=== PATIENT | female | born 1995 | race Caucasian/White ===

== ENCOUNTER 2019-03-19 19:31 | Emergency (ER) | payer BC ==
[2019-03-19 19:44] VITALS: BMI 27.4
[2019-03-19 20:44] LABS: BASO % 0.3 % (0.0-2.0); EOS % 0.6 % (0.0-4.0); HEMOGLOBIN 12.7 g/dL (12.0-16.0); LYMPH % 34.6 % (20.0-40.0); MEAN CELL VOLUME 93.5 fl (81.0-99.0); MEAN CORPUSCULAR HEMOGLOBIN 31.3 pg (27.0-31.0); MEAN CORPUSCULAR HGB CONC 33.5 g/dL (33.0-37.0); MEAN PLATELET VOLUME 8.3 fl (7.2-11.7); MONO # 0.3 K/uL (0.0-0.8); MONO % 5.3 % (0.0-10.0); NEUT # 3.4 K/uL (1.8-7.0); NEUT % 59.2 % (50.0-75.0); NRBC % 0.2 % (0.0-0.0); RBC 4.04 Mil/uL (3.80-5.20); RED CELL DISTRIBUTION WIDTH 12.9 % (11.5-14.5); WHITE BLOOD COUNT 5.7 K/uL (4.8-10.8)
[2019-03-19 20:58] LABS: BLOOD UREA NITROGEN 18 mg/dl (7-17); CALCIUM 9.4 mg/dL (8.4-10.2); GFR NON-AFRICAN AMERICAN > 60
--- NOTE | 2019-03-19 21:10 | ED PDOC ---
HPI: Chest Pain Time Seen by Provider: 03/19/19 19:55 Chief Complaint (Nursing): Chest Pain Chief Complaint (Provider): Chest Pain History Per: Patient History/Exam Limitations: no limitations Onset/Duration Of Symptoms: Days Current Symptoms Are (Timing): Still Present Modifying Factors: None Exacerbating Factors: None Additional History Per: Patient Additional Complaint(s): 23 y/o female with no significant PMHx presents to the ED for evaluation of persistent left sided chest pain, onset one week ago. Patient notes pain is non- radiating, non-exertional and worsens with movement and deep inspirations. Otherwise, patient denies fever, cough, shortness of breath, leg swelling, recent travel and control. 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 PMD: Dr. Merritt - Risk Factors PE Risk Factors: Neg: Extremity Immobilization/Fx, Active Cancer, Estrogen Usage Past Medical History Reviewed: Historical Data, Nursing Documentation, Vital Signs Vital Signs: Last Vital Signs Temp 98.7 F 03/19/19 19:44 Pulse 58 L 03/19/19 19:44 Resp 16 03/19/19 19:44 BP 105/62 03/19/19 19:44 Pulse Ox 99 03/19/19 19:44 - Medical History PMH: No Chronic Diseases - Surgical History Other surgeries: left knee surgery - Family History Family History: States: CAD - Social History Current smoker - smoking cessation education provided: No Alcohol: None Drugs: Denies - Home Medications Home Medications: Ambulatory Orders Medication Instructions Recorded Ibuprofen [Motrin] 600 mg PO TID #20 tab 03/20/19 - Allergies Allergies/Adverse Reactions: Allergies Allergy/AdvReac Type Severity Reaction Status Date / Time No Known Allergies Allergy Verified 03/19/19 19:44 JAY Risk Score for UA/NSTEMI - JAY Risk Score Age > 64: NO 3 or more CAD Risk Factors: NO Known CAD (Stenosis greater than 50%): NO Aspirin use in past 7 days: NO Severe Angina: NO EKG ST changes greater than 0.5mm: NO Positive Cardiac Marker: NO JAY Score: 0 Risk %: 5% Review of Systems ROS Statement: Except As Marked, All Systems Reviewed And Found Negative Constitutional: Negative for: Fever Cardiovascular: Positive for: Chest Pain Respiratory: Negative for: Cough, Shortness of Breath Musculoskeletal: Negative for: Leg Pain Physical Exam - Reviewed Nursing Documentation Reviewed: Yes Vital Signs Reviewed: Yes - Physical Exam Appears: Positive for: No Acute Distress Head Exam: Positive for: ATRAUMATIC, NORMOCEPHALIC Skin: Positive for: Normal Color, Warm, Dry Eye Exam: Positive for: Normal appearance, EOMI, PERRL Neck: Positive for: Normal, Painless ROM, Supple Cardiovascular/Chest: Positive for: Regular Rate, Rhythm. Negative for: Chest Non Tender (point tenderness to the left upper chest wall), Murmur Respiratory: Positive for: Normal Breath Sounds. Negative for: Respiratory Distress Gastrointestinal/Abdominal: Positive for: Normal Exam, Soft. Negative for: Tenderness Back: Positive for: Normal Inspection Extremity: Positive for: Normal ROM. Negative for: Deformity Neurological/Psych: Positive for: Awake, Alert, Oriented (x3) - Laboratory Results Result Diagrams: 03/19/19 20:36 03/19/19 20:36 Lab Results: D-Dimer, Quantitative 239 ng/mlDDU (0-230) H 03/19/19 20:36 - ECG O2 Sat by Pulse Oximetry: 99 (RA) Pulse Ox Interpretation: Normal - Progress Re-evaluation Time: 00:43 Condition: Re-examined, Improved Medical Decision Making Medical Decision Making: Time: 2015 Impression: Chest Pain Differentials include but not limited to ACS, Pulmonary Embolism and Musculoskeletal Pain Plan: -- EKG -- BMP -- Troponin I -- CBC with Differentials -- D Dimer -- CXR Two Views -- Toradol 30 mg IVP -- Plate [place] Time: 28 --CTA chest FINDINGS: Normal enhancement of the main pulmonary artery and right and left pulmonary arteries. Normal enhancement of the bilateral peripheral pulmonary arteries. There is no demonstrated pulmonary embolism. Normal thoracic aorta and visualized great vessels. There is no demonstrated aortic dissection. Normal heart and pericardium. Normal mediastinum. Normal hilar regions. Normal visualized trachea and bronchi. The lungs are well expanded. Normal pulmonary parenchyma. Normal pleura. Normal chest wall structures. Normal osseous structures. Normal visualized upper abdomen. IMPRESSION: Normal CTA chest examination, without a demonstrated pulmonary embolism or arterial dissection. Scribe Attestation: Documented by Gokul Yang, acting as a scribe Roney Degroot MD. Provider Scribe Attestation: All medical record entries made by the Scribe were at my direction and personally dictated by me. I have reviewed the chart and agree that the record accurately reflects my personal performance of the history, physical exam, medical decision making, and the department course for this patient. I have also personally directed, reviewed, and agree with the discharge instructions and disposition. Disposition - Clinical Impression Clinical Impression: Chest pain - Patient ED Disposition Is Patient to be Admitted: No Doctor Will See Patient In The: Office Counseled Patient/Family Regarding: Studies Performed, Diagnosis, Need For Followup - Disposition Disposition: Routine/Home Disposition Time: 00:43 Condition: GOOD Additional Instructions: BRANDON VILLA, thank you for letting us take care of you today. Your provider was Calvin Degroot MD and you were treated for CHEST PAIN. The emergency medical care you received today was directed at your acute symptoms. If you were prescribed any medication, please fill it and take as directed. It may take several days for your symptoms to resolve. Return to the Emergency Department if your symptoms worsen, do not improve, or if you have any other problems. Please contact your doctor or call one of the physicians/clinics you have been referred to that are listed on the Patient Visit Information form that is included in your discharge packet. Bring any paperwork you were given at discharge with you along with any medications you are taking to your follow up visit. Our treatment cannot replace ongoing medical care by a primary care provider outside of the emergency department. Thank you for allowing the [email or web address] team to be part of your care today. If you had an X-Ray or CT scan: A Radiologist will review the ED reading if any change in treatment is needed we will contact you. If you had a blood, urine, or wound culture: It will take several days for the results, if any change in treatment is needed we will contact you. Prescriptions: Ibuprofen [Motrin] 600 mg PO TID #20 tab Instructions: Chest Pain Forms: [facility] ([place])
[2019-03-19] MEDS ORDERED: Sodium Chloride 0.9% 50 ML IV ONE (23:22)
[2019-03-19] MEDS ORDERED: Iodixanol 320 MG/ML 100 ML BOTTLE IV ONE (23:22)
[2019-03-20 02:26] VITALS: BP 113/71; PULSE 57; RESP 16; TEMP 98.6; O2SAT 100
--- NOTE | 2019-03-20 09:28 | CARD ---
APPROVED REPORT Date of service: 03/19/2019 EKG Measurement Heart [id number] <Conclusion> Sinus bradycardia Otherwise normal ECG
--- NOTE | 2019-03-20 10:37 | RAD ---
Date of service: 03/19/2019 HISTORY: chest pain COMPARISON: No prior. TECHNIQUE: Chest PA and lateral views FINDINGS: LUNGS: No active pulmonary disease. PLEURA: No significant pleural effusion identified. No pneumothorax apparent. CARDIOVASCULAR: No aortic atherosclerotic calcification present. Normal cardiac size. No pulmonary vascular congestion. OSSEOUS STRUCTURES: No significant abnormalities. VISUALIZED UPPER ABDOMEN: Normal. OTHER FINDINGS: None. IMPRESSION: No active disease.
--- NOTE | 2019-03-20 11:59 | CT ---
Date of service: 03/19/2019 CTA chest PE protocol Indication: chest pain Technique: Contiguous axial images were obtained through the chest with intravenous contrast enhancement. Sagittal and coronal reconstructions were generated and reviewed. This CT exam was performed using 1 or more of the following dose reduction techniques: Automated exposure control, adjustment of the MAA and/or kV according to patient size, and/or use of iterative reconstruction technique. IV contrast: 90 mL Visipaque 320 IV Radiation dose (DLP): 321.75 MGy-cm. Comparison: Chest x-ray performed 03/19/19 Findings: Visualized portions of the inferior thyroid gland appear unremarkable. The mediastinal and hilar vascular structures appear within normal limits. The heart appears within normal limits of size. No large central or segmental pulmonary embolus evident. No focal consolidation. No pleural effusion. No pneumothorax. No suspicious pulmonary nodules measuring greater than 5 mm. Limited visualized portions of the upper abdomen appear grossly unremarkable. No acute osseous abnormality is detected. Impression: No large central or segmental pulmonary embolus identified. Preliminary impression was provided by [employer] [facility].
== END 2019-03-20 01:00 | disposition home or self-care (01) ==
LOC: H.ER 19:31
DX: R07.89 Other chest pain (principal)
CPT/HCPCS: 71046; 71275; 80048; 81025; 84484; 85025; 85378; 93005; 96374; 99284; J1885; Q9967